=== PATIENT | female | born 1970 | race Caucasian/White ===

== ENCOUNTER 2017-01-09 14:38 | Emergency (ER) | payer MEDICAID ==
[2017-01-09] MEDS ORDERED: Lisinopril 20 MG Tab PO ONE (15:21)
[2017-01-09] MEDS ORDERED: Ketorolac 60 MG/2 ML SDV IM ONE (15:22)
--- NOTE | 2017-01-09 16:11 | EDM.PDOC ---
ED HPI GENERAL MEDICAL PROBLEM - General Chief Complaint: Cardiovascular Problem Stated Complaint: HIGH BLOOD PRESSURE Time Seen by Provider: 01/09/17 15:00 Source of Information: Reports: Patient History Limitations: Reports: No Limitations - History of Present Illness INITIAL COMMENTS - FREE TEXT/NARRATIVE: The patient presents with a headache and feeling tired. Her blood pressure is also elevated. This started 3 days ago. She has some photophobia. He headache was worse yesterday but it better now. She was on lisinopril 40mg daily when she was in [place]. She ran out and now her blood pressure is elevated. She had a cold recently and she was taking cold medicine. She denies chest pain or shortness of breath. She has no fever or chills. She has a mild cough. She has no other health problems. Onset: Gradual Duration: Day(s): (3) Location: Reports: Head Quality: Reports: Ache Severity: Moderate Improves with: Reports: None Worsens with: Reports: None Associated Symptoms: Reports: Headaches. Denies: Confusion, Chest Pain, Fever/ Chills, Loss of Appetite, Nausea/Vomiting, Shortness of Breath Treatments HAND KNITTER: Reports: Other (see below) Other Treatments HAND KNITTER: motrin 400 mg Headache Pain Score (Numeric/FACES): 5 - Related Data Allergies Allergy/AdvReac Type Severity Reaction Status Date / Time No Known Allergies Allergy Verified 01/09/17 14:53 Home Meds: Home Meds Lisinopril 20 mg PO DAILY #30 tablet 01/09/17 [Rx] Past Medical History Cardiovascular History: Reports: Hypertension Gastrointestinal History: Reports: Chronic Diarrhea, GERD Musculoskeletal History: Reports: Other (See Below) Other Musculoskeletal History: pinched nerve in back Neurological History: Reports: Migraines Psychiatric History: Reports: Depression - Past Surgical History HEENT Surgical History: Reports: Oral Surgery GI Surgical History: Reports: Cholecystectomy Social & Family History - Tobacco Use Smoking Status *Q: Current Every Day Smoker Years of Tobacco use: 31 Packs/Tins Daily: 0.5 - Caffeine Use Caffeine Use: Reports: Coffee, Tea - Recreational Drug Use Recreational Drug Use: No ED ROS GENERAL - Review of Systems Review Of Systems: See Below Constitutional: Reports: Malaise, Weakness, Fatigue HEENT: Reports: No Symptoms Respiratory: Reports: No Symptoms Cardiovascular: Reports: No Symptoms Endocrine: Reports: No Symptoms GI/Abdominal: Reports: No Symptoms : Reports: No Symptoms Musculoskeletal: Reports: No Symptoms Skin: Reports: No Symptoms Neurological: Reports: Headache ED EXAM, GENERAL - Physical Exam Exam: See Below Exam Limited By: No Limitations General Appearance: Alert, No Apparent Distress Ears: Normal External Exam Nose: Normal Inspection Head: Atraumatic, Normocephalic Neck: Normal Inspection Respiratory/Chest: No Respiratory Distress, Lungs Clear, Normal Breath Sounds Cardiovascular: Regular Rate, Rhythm, No Edema, No Murmur GI/Abdominal: Soft, Non-Tender, No Organomegaly, No Mass Back Exam: Normal Inspection Extremities: Normal Inspection Neurological: Alert, Oriented, No Motor/Sensory Deficits Course - Vital Signs Last Recorded V/S: Last Vital Signs Temp 99.3 F 01/09/17 14:50 Pulse 95 01/09/17 14:50 Resp 20 01/09/17 14:50 BP 171/116 H 01/09/17 15:41 Pulse Ox 97 01/09/17 14:50 - Orders/Labs/Meds Meds: Medications Discontinued Medications Generic Name Dose Route Start Last Admin Trade Name Jory PRN Reason Stop Dose Admin Ketorolac Tromethamine 60 mg 01/09/17 15:22 01/09/17 15:40 Toradol IM 01/09/17 15:23 60 mg ONETIME ONE Administration Lisinopril 20 mg 01/09/17 15:21 01/09/17 15:41 Prinivil PO 01/09/17 15:22 20 mg ONETIME ONE Administration - Re-Assessments/Exams Free Text/Narrative Re-Assessment/Exam: 01/09/17 16:09 I ordered a shot of toradol for her headache and I gave her a dose of lisinopril here. I will start her on 20mg and have her follow up with one of our providers for a recheck. Departure - Departure Time of Disposition: 16:10 Disposition: Home, Self-Care 01 Condition: Good Clinical Impression: Headache Qualifiers: Headache type: unspecified Headache chronicity pattern: acute headache Intractability: not intractable Qualified Code(s): R51 - Headache Hypertension Qualifiers: Hypertension type: essential hypertension Qualified Code(s): I10 - Essential ( primary) hypertension Prescriptions: Lisinopril 20 mg PO DAILY #30 tablet Referrals: PCP,None [Primary Care Provider] - Alejandra Driver MD [Physician] - 2 Weeks Additional Instructions: Take the lisinopril daily. You blood pressure should slowly come down. Get rechecked in 2 weeks. Please return if you are worse.
== END 2017-01-09 16:20 | disposition home or self-care (01) ==
LOC: JD.ED 14:38
DX: R51 Headache (principal); I10 Essential (primary) hypertension; F17.210 Nicotine dependence, cigarettes, uncomplicated
CPT/HCPCS: 96372; 99284; A9270; J1885; 99283

== ENCOUNTER 2017-02-27 06:55 | Emergency (ER) | payer MEDICAID ==
[2017-02-27] MEDS ORDERED: Acetaminophen/oxyCODONE 325-5 MG Tab PO ONE (07:44)
[2017-02-27] MEDS ORDERED: Ondansetron 4 MG Tab.DIS PO ONE (07:45)
--- NOTE | 2017-02-27 08:15 | EDM.PDOC ---
ED HPI GENERAL MEDICAL PROBLEM - General Chief Complaint: Back Pain or Injury Stated Complaint: BACK PAIN Time Seen by Provider: 02/27/17 07:30 Source of Information: Reports: Patient History Limitations: Reports: No Limitations - History of Present Illness INITIAL COMMENTS - FREE TEXT/NARRATIVE: 46-year-old female attends the ED complaining of sudden onset of severe right mid low back pain. She states she had gotten up for the morning and felt fine. She got her up to work. She was walking down the hallway when the pain hits suddenly like a strong spasm in her right mid lower back. This stopped in her tracks and she had a standstill for nearly 40 minutes before she could carry on. Since that time she is getting intermittent spasms of pain usually associate with movement. No nausea or vomiting. No strong feeling of need to void or defecate. She did have to get to the toilet but she found this difficult to get on and off the toilet suggesting Musculoskeletal pain. No known injuries from yesterday's activities. Onset: Today Onset Date: 02/27/17 Onset Time: 06:20 Duration: Minutes: Location: Reports: Back (Right mid low back pain.) Quality: Reports: Ache, Sharp, Stabbing Severity: Severe Improves with: Reports: Rest Worsens with: Reports: Movement Context: Denies: Activity, Exercise, Lifting, Sick Contact, Trauma, Other Associated Symptoms: Reports: No Other Symptoms Treatments HEALTH CARE SPECIALIST: Reports: Other (see below) (None.) - Related Data Allergies Allergy/AdvReac Type Severity Reaction Status Date / Time No Known Allergies Allergy Verified 02/27/17 07:05 Home Meds: Home Meds Lisinopril 20 mg PO DAILY #30 tablet 01/09/17 [Rx] Cyclobenzaprine [Flexeril] 10 mg PO BEDTIME #5 tab 02/27/17 [Rx] Prednisone [IJD: predniSONE] 20 mg PO BID #10 tab 02/27/17 [Rx] oxyCODONE HCl/Acetaminophen [Percocet 5-325 mg Tablet] 1 - 2 each PO Q4H PRN # 20 tablet 02/27/17 [Rx] Past Medical History Cardiovascular History: Reports: Hypertension Gastrointestinal History: Reports: Chronic Diarrhea, GERD 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: Musculoskeletal History: Reports: Other (See Below) Other Musculoskeletal History: pinched nerve in back Neurological History: Reports: Migraines Psychiatric History: Reports: Depression - Past Surgical History HEENT Surgical History: Reports: Oral Surgery GI Surgical History: Reports: Cholecystectomy Social & Family History - Tobacco Use Smoking Status *Q: Current Every Day Smoker Years of Tobacco use: 30 Packs/Tins Daily: 0.5 - Caffeine Use Caffeine Use: Reports: Coffee - Recreational Drug Use Recreational Drug Use: No - Living Situation & Occupation Living situation: Reports: Single Occupation: Employed ED ROS GENERAL - Review of Systems Review Of Systems: See Below Constitutional: Reports: No Symptoms HEENT: Reports: No Symptoms Respiratory: Reports: No Symptoms Cardiovascular: Reports: Blood Pressure Problem Endocrine: Reports: No Symptoms GI/Abdominal: Reports: No Symptoms : Reports: No Symptoms Musculoskeletal: Reports: Back Pain (Right mid low back pain) Skin: Reports: No Symptoms Neurological: Reports: No Symptoms Psychiatric: Reports: No Symptoms Hematologic/Lymphatic: Reports: No Symptoms Immunologic: Reports: No Symptoms ED EXAM,LOWER BACK PAIN/INJURY - Physical Exam Exam: See Below Exam Limited By: No Limitations General Appearance: Alert, WD/WN, Mild Distress GI/Abdominal: Normal Bowel Sounds, Soft, Non-Tender, No Organomegaly, Other ( Abdominal girth limits ability to palpate solid organs.) Back Exam: Vertebral Tenderness (She has mild tenderness over the right L5-L3 facet joints on the right side with minimal paraspinal muscle spasm.) Extremities: Normal Inspection, Normal Range of Motion, Non-Tender, No Pedal Edema Neurological: Alert, Normal Mood/Affect, Normal Dorsiflexion, CN II-XII Intact, Normal Plantar Flexion, Normal Gait, Oriented x 3 Psychiatric: Normal Affect, Normal Mood Skin Exam: Warm, Dry, Intact, Normal Color, No Rash Course - Vital Signs Last Recorded V/S: Last Vital Signs Temp 36.6 C 02/27/17 07:07 Pulse 97 02/27/17 07:07 Resp 12 02/27/17 07:07 BP 177/94 H 02/27/17 07:07 Pulse Ox 99 02/27/17 07:07 - Orders/Labs/Meds Labs: Laboratory Tests 02/27/17 Range/Units 07:48 Urine Color Yellow (Yellow) Urine Appearance Clear (Clear) Urine pH 5.5 (5.0-8.0) Ur Specific [place] > or = 1.030 (1.005-1.030) Urine Protein Negative (Negative) Urine Glucose (UA) Negative (Negative) Urine Ketones Negative (Negative) Urine Occult Blood Trace-intact H (Negative) Urine Nitrite Negative (Negative) Urine Bilirubin Negative (Negative) Urine Urobilinogen 0.2 (0.2-1.0) Ur Leukocyte Esterase Negative (Negative) Urine RBC 0-5 (0-5) /hpf Urine WBC 0-5 (0-5) /hpf Ur Epithelial Cells 5-10 H (0-5) /hpf Urine Bacteria Few (FEW) /hpf Urine Mucus Not seen (FEW) /hpf Meds: Medications Discontinued Medications Generic Name Dose Route Start Last Admin Trade Name Freq PRN Reason Stop Dose Admin Ondansetron HCl 4 mg 02/27/17 07:45 02/27/17 07:50 Zofran Odt PO 02/27/17 07:46 4 mg ONETIME ONE Administration Oxycodone/Acetaminophen 2 tab 02/27/17 07:44 02/27/17 07:50 Percocet 325-5 Mg PO 02/27/17 07:45 2 tab ONETIME ONE Administration - Radiology Interpretation Free Text/Narrative:: 46-year-old female presents the ED with acute onset of severe right lower back pain just below her kidney. Pain came on aggressively strongly spastic associate with mild nausea without vomiting. She did void after the pain came on it did not notice any blood in the urine. No history of kidney stones. She has no reason to have acute low back pain. She had minimal pain localized to the L3 facet joint on the right side. Minimal paraspinal muscle spasm. Plan given Percocet 5/3/25 milligrams 2 with Zofran 4 mg sublingually. Will get below her drink fluids so that I can get a urinalysis to rule out a kidney stone. - Re-Assessments/Exams Free Text/Narrative Re-Assessment/Exam: 02/27/17 08:32 patient continues to have a spastic type pain. Urinalysis shows trace of occult RBCs. I reexamined her back and he still could not identify a localized source of pain. Therefore CT of the abdomen and pelvis done per renal protocol to rule out a occult kidney stone. 02/27/17 10:01 CT of the abdomen and pelvis has been completed. It does not reveal any signs of renal lithiasis or obstruction of the ureteric system. Liver appears to be normal spleen appears normal adrenal glands are normal pancreas normal. Surgical clips are seen from previous gall bladder resection. Aorta shows no aneurysmal dilatation. There are no pelvic masses or adenopathy. Appendix is seen and is normal. Small fat-containing umbilical hernia appreciated. Diverticula are noted within the sigmoid colon without any evidence of diverticulitis. No bowel dilatation is seen. Bone windows review show degenerative changes within the apophyseal joints particularly L4-L5 with mild spondylosis listhesis. Therefore her pain appears to be coming from low back. Departure - Departure Time of Disposition: 10:31 Disposition: Home, Self-Care 01 Condition: Fair Clinical Impression: Lumbar back pain - Discharge Information Prescriptions: Cyclobenzaprine [Flexeril] 10 mg PO BEDTIME #5 tab oxyCODONE HCl/Acetaminophen [Percocet 5-325 mg Tablet] 1 - 2 each PO Q4H PRN # 20 tablet PRN Reason: pain relief. Prednisone [IJD: predniSONE] 20 mg PO BID #10 tab Referrals: PCP,None [Primary Care Provider] - Forms: ED Department Discharge, ED Return to Work/School Form Additional Instructions: Evaluation the emergency room today in regards to sudden onset of severe right lower back pain. This comes and goes in a very spastic manner and seems to be related to movement. Examination however reveals some pain over the L3-4 facet joint on the right side but minimal paraspinal muscle spasm. Therefore case it was a kidney stone causing this type of pain urinalysis was done and it showed a trace of red cells in the urine. Therefore CT scan of the abdomen and pelvis was performed but it does not show any signs of kidney stones or ureteric obstruction. It did reveal degenerative arthritic changes in your lower back. It is therefore time to heal. Facet joint strain is like an ankle sprain where you have fluid buildup between the joint and with certain movements will cause the muscle overlying the facet joint in your back to going to spasm. Therefore treatment is activity as tolerated. Pain medication is to be Aleve 2 tablets every 8 hours until better. Deltasone 30 mg was given in the ED and then you need 40 mg for supper tonight than his stated to be taken twice daily morning with breakfast and supper for 5 more days Stronger pain medicine Percocet 5/3/ 25 milligram tablets which is what she received in the ED are to be taken 1-2 tablets every 4-6 hours needed for pain relief. Flexeril 10 mg at bedtime only as it is highly sedating but does relieve muscle spasm. Suggest off work for a minimum of the next 3 days. Follow-up with personal care provider if not completely back to normal in 7-8 days time.
--- NOTE | 2017-02-27 09:37 | CT ---
CT abdomen and pelvis Technique: Multiple axial sections were obtained from above the dome of the diaphragm inferiorly through the pubic symphysis. Intravenous and oral contrast not utilized. Study has been performed as a ureteral stone protocol. Comparison: No prior abdominal imaging. Findings: Kidneys show no abnormal calcifications. No ureteral dilatation or ureteral stone is identified. Visualized lung bases shows nothing acute. Noncontrast appearance of the liver appears within normal limits. Spleen appears within normal limits. Adrenal glands show no nodule. Pancreas appears within normal limits. Surgical clips are seen from prior cholecystectomy. Aorta shows no aneurysmal dilatation. No retroperitoneal adenopathy or mesenteric abnormalities are seen. No pelvic mass or adenopathy is seen. Appendix is seen which appears normal. Small fat-containing umbilical hernia is incidentally noted. Diverticuli are seen within the sigmoid colon without diverticulitis. No bowel dilatation is seen. No inflammatory change or free fluid is identified. Bone window settings were reviewed which shows degenerative change within the apophyseal joints at L4-L5 with mild spondylolisthesis. Scattered disc space narrowing is seen within the spine. Impression: 1. No renal calculi, ureteral dilatation or ureteral stone is seen. 2. Other incidental findings as described above. Nothing acute is appreciated. Diagnostic code #2
[2017-02-27] MEDS ORDERED: predniSONE 20 MG Tab PO ONE (10:31)
== END 2017-02-27 10:51 | disposition home or self-care (01) ==
LOC: JD.ED 06:55
DX: M54.5 Low back pain (principal); M62.830 Muscle spasm of back; I10 Essential (primary) hypertension; Z79.899 Other long term (current) drug therapy
CPT/HCPCS: 74176; 81001; 99284; A9270; 99282

== ENCOUNTER 2017-03-07 21:02 | Emergency (ER) | payer MEDICAID ==
[2017-03-07] MEDS ORDERED: Lidocaine 1% 10 ML MDV INJECT ONE (21:09)
[2017-03-07] MEDS ORDERED: LORazepam 1 MG Tab PO ONE (21:10)
[2017-03-07] MEDS ORDERED: Diphtheria,Pertussis(Acell),Tetanus Vaccine 0.5 ML SDV IM ONE (21:10)
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
== END 2017-03-07 21:48 | disposition home or self-care (01) ==
LOC: JD.ED 21:02
DX: S51.812A Laceration without foreign body of left forearm, initial encounter (principal); I10 Essential (primary) hypertension; F17.210 Nicotine dependence, cigarettes, uncomplicated; Z23 Encounter for immunization; Z79.899 Other long term (current) drug therapy; X78.8XXA Intentional self-harm by other sharp object, initial encounter
CPT/HCPCS: 12002; 90471; 90715; 99284; A9270; 99283